=== PATIENT | male | born 1965 | race Caucasian/White ===

== ENCOUNTER 2024-10-17 10:22 | Outpatient (CLI) | payer BC, SELFPAY ==
--- OUTSIDE RECORDS SUMMARY | 2024-09-15 04:03 | XMS_ITS | Continuity of Care Document ---
Author Organization [facility] Address [address] [address] [place] [address] Phone Care Team Providers Care Agent Name Role Phone Deshawn Hair MD, Thomas Unavailable Unavailabl e Advance Directives Directive Yes / No Effective Date File Name No Information Encounters Encounter Description Practice Location Reason(s) For Visit Diagnoses Date Provider Providers Copied on Encounter [facility], [address] [address], [place], [place], [id number], [place] tel:[phone] [facility] No Information Deshawn Guzman. [address] [facility], [facility] [address], [place], [place], [id number], [place]. tel:[phone] Family History Family Member Type Diagnosis Age At Onset No Information Immunizations Vaccine Date Status Comments zoster vaccine recombinant administered N ote: [facility] bi-directional interface ; Source: Other Registry SARS-COV-2 (COVID-19) vaccin e, mRNA, spike protein, LNP, preservative free, 30 mcg/0.3mL dose, tammy-sucrose formulation administered Note: MII C bi- directional interface ; Source: Other Registry tetanus toxoid, reduced diphtheria toxoid, and acellular pertussis vaccine, adsorbed administered Note: [facility] b i-directional interface ; Source: Other Registry measles, mumps and rubella v irus vaccine administered Note: [facility] bi-direct ional interface ; Source: Other Registry Afluria Qd [id number] administered Note: M [facility] bi-directional interface ; Source: Other Registry SARS-COV-2 (COVID-19) vaccin e, mRNA, spike protein, LNP, preservative free, 30 mcg/0.3mL dose administered Note: [facility] bi-direct ional interface ; Source: Other Registry SARS-COV-2 (COVID-19) vaccin e, mRNA, spike protein, LNP, preservative free, 30 mcg/0.3mL dose administered Note: [facility] bi-direct ional interface ; Source: Other Registry SARS-COV-2 (COVID-19) vaccin e, mRNA, spike protein, LNP, preservative free, 30 mcg/0.3mL dose administered Note: [facility] bi-direct ional interface ; Source: Other Registry Payers Payer name Insurance type Covered libertarian ID Authoriza tion(s) No Information Social History Type Description Quantity Date Captured Comments Sex Male Smoking Status No Information Chief Complaint And Reason For Visit No Information Reason For Referral Reason For Referral No Information History Of Present Illness Encounter Date Complaint History Of Prese nt Illness No Information Functional Status Date Functional Assessmen t No Information Instructions Date Instruction Additional Infor mation No Information Assessments Type Assessment Date No Information Patient Care Teams Name Effective Dates (start - stop) Status Members No Information
--- OUTSIDE RECORDS SUMMARY | 2024-09-15 04:03 | XMS_ITS | Continuity of Care Document ---
Author Organization [facility] Address [address] [address] [place] [address] Phone Care Team Providers Care Cloth Shearing Supervisor Name Role Phone Deshawn Hair MD, Thomas Unavailable Unavailabl e Advance Directives Directive Yes / No Effective Date File Name No Information Encounters Encounter Description Practice Location Reason(s) For Visit Diagnoses Date Provider Providers Copied on Encounter [facility], [address] [address], [place], [place], [id number], [place] tel:[phone] [facility] No Information Deshawn Guzman. [address] [facility], [address], [place], [place], [id number], [place]. tel:[phone] Family History Family Member Type Diagnosis Age [...] interface ; Source: Other Registry Afluria Qd [id number] administered Note: M [facility] bi-directional interface ; [...] Registry Payers Payer name Insurance type Covered constitution party ID Authoriza tion(s) No Information Social History [...]
--- OUTSIDE RECORDS SUMMARY | 2024-10-17 11:56 | XMS_ITS | CCD ---
Author Name Interface, [id number] lity Address [address] [place] [address] [address] [place] [address] [facility] Address [facility] [address] [place] [address] Care Team Providers Care Auto Dismantler Name Role Phone Roland Rojas Unavailable Unavailable Allergies and Adverse Reactions Care Plan Reason for Visit Encounters Functional Status Medications Problems Procedures Social History
--- OUTSIDE RECORDS SUMMARY | 2024-10-17 11:56 | XMS_ITS ---
Author Name Interface, [id number] lity Address [address] [place] [address] [address] [address] [facility] On[facility] Address [facility] [address] [place] [address] Care Team Providers Care Environmental Systems Coordinator Name Role Phone Roland Rojas L Unavailable Unavailable Allergies and Adverse Reactions Medication/Group Name Reaction Severity Date No known allergies Plan Date Type Value 01/15/2023 APPOINTMENT LAB 15 MIN 01/15/2023 APPOINTMENT OV 20 MIN 12/30/2021 APPOINTMENT PHLEBOTOMY 30 WA N 01/15/2023 LABORDER CBC w/ auto diff 01/15/2023 LABORDER Ferritin panel 01/14/2024 LABORDER CBC w/ auto diff 01/14/2024 LABORDER Ferritin panel Reason for Visit OV 20 MIN Diagnostic Results Date Type Test Units Lower Limit Upper Limit Result Flag Comments Status Ordered By Specimen Source Lab Address 01/15 CBC w/ auto diff WBC K/uL 3.0 8.9 5.1 FINAL [facility] [facility] [address] [phone] Phone: () - 01/15 CBC w/ auto diff HGB g/dL 12.5 16.6 14.9 FINAL [facility] [place] [address] [id number] 0 Phone: () - 01/15 CBC w/ auto diff PLT K/uL 113.0 364.0 183 FINAL [facility] [place] [address] [id number] 0 Phone: () - 01/15 CBC w/ auto diff Radha # (ANC) K/uL 1.6 6.6 2.6 FINAL [facility] [place] [address] [id number] 0 Phone: () - 01/15 CBC w/ auto diff Radha % % 43.0 74.0 51.5 FINAL [facility] [address] [id number] 0 Phone: () - 01/15 CBC w/ auto diff IG % % 0.0 0.5 0.2 FINAL [facility] [address] [id number] 0 Phone: () - 01/15 CBC w/ auto diff IG # K/uL 0.0 0.03 0.01 FINAL [facility] [address] [id number] 0 Phone: () - 01/15 CBC w/ auto diff LY % % 14.0 41.0 37.5 FINAL [facility] [address] [id number] 0 Phone: () - 01/15 CBC w/ auto diff MO % % 6.0 15.0 9.2 FINAL [facility] [address] [phone] 0 Phone: () - 01/15 CBC w/ auto diff EO % % 0.0 7.0 1.0 FINAL [facility] [address] [id number] 0 Phone: () - 01/15 CBC w/ auto diff BA % % 0.0 2.0 0.6 FINAL [facility] [address] [id number] 0 Phone: () - 01/15 CBC w/ auto diff LY # K/uL 0.4 3.6 1.9 FINAL [facility] [address] [phone] 0 Phone: () - 01/15 CBC w/ auto diff MO # K/uL 0.2 1.3 0.5 FINAL [facility] [address] [id number] 0 Phone: () - 01/15 CBC w/ auto diff EO # K/uL 0.0 0.6 0.1 FINAL [facility] [address] [id number] 0 Phone: () - 01/15 CBC w/ auto diff BA # K/uL 0.0 0.2 0.0 FINAL [facility] [address] [id number] 0 Phone: () - 01/15 CBC w/ auto diff NRBC % #/100W BC 0.0 0.2 0.0 FINAL [facility] [address] [id number] 0 Phone: () - 01/15 CBC w/ auto diff RBC M/uL 4.2 5.6 4.53 FINAL [facility] [address] [id number] 0 Phone: () - 01/15 CBC w/ auto diff HCT % 39.0 49.0 41.9 FINAL [facility] [address] [id number] 0 Phone: () - 01/15 CBC w/ auto diff MCV fL 80.0 104.0 92.5 FINAL [facility] [address] [id number] 0 Phone: () - 01/15 CBC w/ auto diff MCH pg 26.0 35.0 32.9 FINAL [facility] [address] [id number] 0 Phone: () - 01/15 CBC w/ auto diff MCHC g/dL 30.0 35.0 35.6 High FINAL [facility] [address] [id number] 0 Phone: () - 01/15 CBC w/ auto diff MPV fL 9.5 13.4 9.5 FINAL [facility] [address] [id number] 0 Phone: () - 01/15 CBC w/ auto diff RDW % 11.3 15.6 12.30 [facility] [place] , [address] [facility] [address] [facility] [phone] 0 Phone: () - 01/15 Lisandro tin panel Lisandro tin NG/ML 27.0 300.0 229.90 [facility]AL [facility] [place], [address] [facility] [address] [facility] [phone] 0 Phone: () - Medications Date Name Route Dose Frequency Instructions Start Date End Date Status Esomeprazole (Magnesium) Oral Delayed Release Capsule 20.0 mg active Sildenafil Oral 100.0 mg PRN active Atorvastatin Oral 20.0 mg active Valacyclovir Oral orally twice daily as needed active Problems Diagnosis Status Date of Diagnosi s Hemochromatosis Active Iron overload (disorder) Active Vital Signs Date Type Value 12/30/2021 Body Temperature 99.30 12/30/2021 Pain Scale 0.00 12/30/2021 Height 71.00 12/30/2021 Intravascular Systolic 130 12/30/2021 Intravascular Diastolic 87 12/30/2021 Oxygen Saturation 97.00 12/30/2021 Respiratory Rate 16.00 12/30/2021 Heart Beat 62.00 01/15/2023 Height 71.00 01/15/2023 BMI 26.89 01/15/2023 Weight 192.80 01/15/2023 Pain Scale 0.00 01/15/2023 Intravascular Systolic 122 01/15/2023 Intravascular Diastolic 80 01/15/2023 Oxygen Saturation 97.00 01/15/2023 Respiratory Rate 14.00 01/15/2023 BSA 2.08 01/15/2023 Body Temperature 97.10 01/15/2023 Heart Beat 55.00 Notes Section * Med Onc Follow-up Note Patient Name: DEMETRIO NASH? Date Of : 1965? Today's Provider:?Roland Rojas MD Date of Service:?01/15/2023? Attending Physician:?Roland Rojas (Hematology/Oncology) Referring Provider:??Jayson Gaspar MD HEMATOLOGY/ MEDICAL ONCOLOGY FOLLOW UP VISIT Reason for Visit Evaluation and treatment decision regarding hemochromatosis/iron overload Assessment 1. Hemochromatosis Plan 1. He has a history of iron overload with ferritin persistently above 400 for the last few years time. He has normal liver enzymes. 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 He has no mutation on?C282Y gene. This mutation is not typicallyrelated to iron over load but due to persistently elevated ferritin, he had phlebotomy before. His last phlebotomy was in 2021 for ferritin of >600. Will follow up on labs today and consider phlebotomy.?? Advanced Care Planning Not discussed at this visit. Pain Scale on Today's Visit 0 Pain Plan on Today's Visit No pain plan indicated for today's visit Smoking Status Smoking Tobacco : Former smoker; Smokeless Tobacco : none found; Vaping : none found Depression Screening Tool Status Was screened; Outcome positive: No; Screening Date: 01/15/2023; Screening Tool: PRIME MD-PHQ2; Total depression score: 0 History of Present Illness Demetrio Nash is a 55-year-old male with a diagnosis of iron overload. He recently moved from [facility] to [place] because of her new job. More than 4 years ago he was diagnosed with high ferritin. Due to the fact that he was in [place] during the month because of disease, he was declined phlebotomy in [facility]. He established his care here and had a ferritin checked which was??429. Hemochromatosis gene analysis shows that he is heterozygote for H63D gene mutation. He does not carry a mutationon the C282Y gene. His parents at age 69 and 75 from heart disease and Alzheimer's. He has no siblings. Liver enzymes normal. Interval History He has no skin change. ??He has no abdominal pain. ??No??joint pain. Review of Systems Remaining 14 point comprehensive review of systems within normal limits. NCCN Distress Thermometer and Problem List were collected and documented in the patient chart.?? Remarkable symptoms and concerns were discussed with the patient.?? Any additional follow-up is indicated in the plan. Past Medical and Surgical History Lung cancer hyperlipidemia Current Medications Medication List Name Date Atorvastatin Oral 12/10/2020 Valacyclovir Oral 12/19/2021 Nexium 24HR (Esomeprazole (Magnesium) Or al Delayed Release Capsule) 12/10/2020 Viagra (Sildenafil Oral) 12/19/2021 Allergies No known medication allergies Family History No family history of iron overload. Of a 69 and 75 from heart disease and Alzheimer's related complication. Social History He is a non-smoker. He drinks about 12 drinks a week. Vital Signs Blood pressure: 122/80, R arm, Pulse: 55, Temperature: 97.1 F, Respirations: 14, O2 sat: 97%, At Rest, Room Air, Pain Scale: 0, Height: 71 in, Weight: 192.8 lb, BSA: 2.08, BMI: 26.89 kg/m2 Covid Booster #2 Pfizer (12/19/2021), Elsewhere; Covid booster #1 Pfizer (06/16/2021), Elsewhere; Covid-19 vaccine (Pfizer) (12/10/2020), Elsewhere; Covid-19 vaccine ([employer]) (12/10/2020), Elsewhere;Flu vaccine - Adult (08/2021), Elsewhere Performance Status ECOG or Karnofsky ECO Normal activity. Fully active, able to carry on all pre-disease performance without restriction. (Date: 12/19/2021) Karnofsky:?Not recorded Physical Exam Head: ??Normocephalic. ?? Eyes: ??PERRLA, full EOM. ??External exams normal. ?? Nose: ??Patent, without deformity. ?? Throat: ??Moist mucous membranes without lesions, erythema, or exudate. ?? Neck: ??Supple, without masses, lymphadenopathy or tenderness. ?? Respiratory: ??Normal respiratory effort. ??Lungs are clear with good breath sounds. ?? Heart: ??RR without murmurs, rubs, or gallops. ?? Abdomen: ??The abdomen was flat, soft and nontender without guarding rebound or masses. ?? Extremities: ??Full ROM without limitation, deformity or edema.?? Skin: ??Smooth without excessive sweating, with normal hair distribution. ??No suspicious lesions visible. Neuro: ??CN 2-12 intact. ??Strength and sensation intact in all extremities. ??Motor function intact. ?? Genetics/Molecular/Biomarkers ? Additional Labs, Imaging, and Other Studies Lab Results CBC Lab Results 01/15/2023 12/19/2021 06/16/2021 03/11/2021 12/11/1911/30/2020 CBC WBC x 10^3/uL 5.1 5.4 5.7 6.0 RBC x 10^6/uL 4.53 4.62 4.60 4.88 NRBC % /100 wbc 0.0 0.0 0.0 0.0 HGB g/dL 14.9 15.1 14.5 15.4 HCT % 41.9 42.3 42.4 44.3 MCV fL 92.5 91.6 92.2 90.8 MCH pg 32.9 32.7 31.5 31.6 MCHC g/dL 35.6 (H) 35.7 (H) 34.2 34.8 RDW % 12.30 12.70 11.90 12.00 PLT x 10^3/uL 183 172 190 187 MPV fL 9.5 9.5 9.7 9.3 (L) Radha % 51.5 52.7 50.7 49.2 LY % 37.5 37.0 39.8 41.6 (H) MO % 9.2 8.0 7.3 7.6 EO % 1.0 1.3 1.4 1.0 IG % 0.2 0.4 0.4 0.3 Radha # (ANC) x 10^3/uL 2.6 2.8 2.9 2.9 BA % 0.6 0.6 0.4 0.3 MO # x 10^3/uL 0.5 0.4 0.4 0.5 EO # x 10^3/uL 0.1 0.1 0.1 0.1 BA # x 10^3/uL 0.0 0.0 0.0 0.0 IG # x 10^3/uL 0.01 0.02 0.02 0.02 LY # x 10^3/uL 1.9 2.0 2.3 2.5 ? Lab Results 01/15/2023 12/19/2021 06/16/2021 03/11/2021 12/11/1911/30/2020 Anemia Labs Ferritin ng/mL 660.90 (H) 287.10 225.60 Surveys/Consents/Other Discussions Roland Rojas MD CC: FAX Jayson Gaspar MD (Referring) Electronically signed by Roland Rojas MD 01/15/2023 13:28 CDT
--- OUTSIDE RECORDS SUMMARY | 2024-10-17 11:56 | XMS_ITS ---
Author Name Interface, [id number] lity Address [address] [place] [address] [address] [address] [facility] Address [facility] [address] [place] [address] Care Team Providers Care Pharmacy Technician Name Role Phone Roland Rojas L Unavailable Unavailable Allergies and Adverse Reactions Medication/Group Name Reaction Severity Date No known allergies Plan Date Type Value 01/15/2023 APPOINTMENT LAB 15 MIN 01/15/2023 APPOINTMENT OV 20 MIN 01/15/2023 LABORDER CBC w/ auto diff 01/15/2023 LABORDER Ferritin panel 01/14/2024 LABORDER CBC w/ auto diff 01/14/2024 LABORDER Ferritin panel Reason for Visit OV 20 MIN Encounters Date Name 01/15/2023 Hemochromatosis 01/15/2023 Iron overload (disor catherine) Diagnostic Results Date Type Test Units Lower Limit Upper Limit Result Flag Comments Status Ordered By Specimen Source Lab Address 01/15 CBC w/ auto diff WBC K/uL 3.0 8.9 5.1 FINAL [facility] [place] [address] [phone] 0 Phone: () - 01/15 CBC w/ auto diff HGB g/dL 12.5 16.6 14.9 FINAL [facility] [place] [address] [id number] 0 Phone: () - 01/15 CBC w/ auto diff PLT K/uL 113.0 364.0 183 FINAL [facility] [place] [address] [id number] 0 Phone: () - 01/15 CBC w/ auto diff Radha # (ANC) K/uL 1.6 6.6 2.6 FINAL [facility] [place] [facility] [place] , [address] [place] [phone] 0 Phone: () - 01/15 CBC w/ auto diff Radha % % 43.0 74.0 51.5 FINAL [facility] [address] [id number] 0 Phone: () - 01/15 CBC w/ auto diff IG % % 0.0 0.5 0.2 FINAL [facility] [address] [phone] 0 Phone: () - 01/15 CBC w/ auto diff IG # K/uL 0.0 0.03 0.01 FINAL [facility] [address] [phone] 0 Phone: () - 01/15 CBC w/ auto diff LY % % 14.0 41.0 37.5 FINAL [facility] [phone] 0 Phone: () - 01/15 CBC w/ auto diff MO % % 6.0 15.0 9.2 FINAL [facility] [id number] 0 Phone: () - 01/15 CBC w/ auto diff EO % % 0.0 7.0 1.0 FINAL [facility] [id number] 0 Phone: () - 01/15 CBC w/ auto diff BA % % 0.0 2.0 0.6 FINAL [facility] [address] [id number] 0 Phone: () - 01/15 CBC w/ auto diff LY # K/uL 0.4 3.6 1.9 FINAL [facility] [address] [id number] 0 Phone: () - 01/15 CBC w/ auto diff MO # K/uL 0.2 1.3 0.5 FINAL [facility] [address] [id number] 0 Phone: () - 01/15 CBC w/ auto diff EO # K/uL 0.0 0.6 0.1 FINAL [facility] [address] [id number] 0 Phone: () - 01/15 CBC w/ auto diff BA # K/uL 0.0 0.2 0.0 FINAL [facility] [address] [id number] 0 Phone: () - 01/15 CBC w/ auto diff NRBC % #/100W BC 0.0 0.2 0.0 FINAL [facility] [address] [id number] 0 Phone: () - 01/15 CBC w/ auto diff RBC M/uL 4.2 5.6 4.53 FINAL [facility] [address] [id number] 0 Phone: () - 01/15 CBC w/ auto diff HCT % 39.0 49.0 41.9 FINAL [facility] [address] [id number] 0 Phone: () - 01/15 CBC w/ auto diff MCV fL 80.0 104.0 92.5 FINAL [facility] [address] [id number] 0 Phone: () - 01/15 CBC w/ auto diff MCH pg 26.0 35.0 32.9 FINAL [facility] [address] [phone] 0 Phone: () - 01/15 CBC w/ auto diff MCHC g/dL 30.0 35.0 35.6 High FINAL [facility] [address] [id number] 0 Phone: () - 01/15 CBC w/ auto diff MPV fL 9.5 13.4 9.5 FINAL [facility] [address] [id number] 0 Phone: () - 01/15 CBC w/ auto diff RDW % 11.3 15.6 12.30 [facility] [address] [id number] 0 Phone: () - 01/15 Lisandro tin panel Lisandro tin NG/ML 27.0 300.0 229.90 [facility] [place], [address] [phone] 0 Phone: () - Medications Date Name Route Dose Frequency Instructions Start Date End Date Status Esomeprazole (Magnesium) Oral Delayed Release Capsule 20.0 mg active Sildenafil Oral 100.0 mg PRN active Atorvastatin Oral 20.0 mg active Valacyclovir Oral orally twice daily as needed active Problems Diagnosis Status Date of Diagnosi s Hemochromatosis Active Iron overload (disorder) Active Vital Signs Date Type Value 01/15/2023 Body Temperature 97.10 01/15/2023 Heart Beat 55.00 01/15/2023 Respiratory Rate 14.00 01/15/2023 Oxygen Saturation 97.00 01/15/2023 BSA 2.08 01/15/2023 Pain Scale 0.00 01/15/2023 Weight 192.80 01/15/2023 Height 71.00 01/15/2023 BMI 26.89 01/15/2023 Intravascular Systolic 122 01/15/2023 Intravascular Diastolic 80 Notes Section * Med Onc Follow-up Note [...] positive: No; Screening Date: 01/15/2023; Screening Tool: MD-PHQ2; Total depression score: 0 History of Present Illness Demetrio Nash is a 55-year-old male with a diagnosis of iron overload. He recently moved from [place] to [place] because of her new job. More than 4 years ago he was diagnosed with high ferritin. Due to the fact that he was in [place] during the month because of disease, he was declined phlebotomy in [place]. He established his care here and had [...] Covid-19 vaccine (Pfizer) (12/10/2020), Elsewhere; Covid-19 vaccine (Pfizer) (12/10/2020), Elsewhere;Flu vaccine - Adult (08/2021), Elsewhere [...]
--- OUTSIDE RECORDS SUMMARY | 2024-10-17 11:57 | XMS_ITS | Clinical Summary ---
Author Organization [facility] Address [address] [place] [address] Care Team Providers Care Steward/Stewardess Deck Name Role Phone Jatin Escalante MD Primary Care Provider + [phone] Allergies No known active allergies Medications timolol maleate/latanoprost /PF (timoloL-latanopros t,PF,) 0.5-0.005 % dropIndications:Gla ucoma, unspecified glaucoma type, unspecified laterality Once daily to both eyes 5 mL 2 Active esomeprazole (NEXIUM) 40 mg capsuleIndications: Hyperlipidemia, unspecified hyperlipidemia type,Chronic GERD Take 1 Capsule (40 mg) by mouth once daily. 90 Capsule 3 2 Active valACYclovir (VALTREX) 1 gram tabletIndications:C old sore Take 1 Tablet (1 g) by mouth every 12 hours. 180 Tablet 1 4 Active timoloL maleate (TIMOPTIC) 0.25 % ophthalmic solutionIndications :Primary angle closure glaucoma of both eyes, indeterminate stage, unspecified primary angle-closure glaucoma type PLACE 1 DROP INTO BOTH EYES ONCE DAILY. IN THE MORNING 15 mL 6 4 Active latanoprost (XALATAN) 0.005 % ophthalmic solutionIndications :Primary angle closure glaucoma of both eyes, indeterminate stage, unspecified primary angle-closure glaucoma type Place 1 Drop into both eyes at bedtime. 7.5 mL 6 4 Active tadalafiL 20 mg tabletIndications:E rectile dysfunction of organic origin As directed 1 Tablet (20 mg) once daily if needed for Erectile Dysfunction. Take 30 minutes before sexual activity. 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) [place] [facility] H63D gene mutation heterozygote No mutation on C282Y gene Phleb once and ferritin became normal plan every 6 months recheck and phleb if ferritin over 400 Cold sore 11/30/2020 Chronic GERD 11/30/2020 Hyperlipidemia 11/30/2020 Glaucoma 11/30/2020 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 Elevated ferritin 11/30/2020 Encounters Date Type Department Care Team Description 10/16/2024 7:12 AM CDT - 10/16/2024 11:59 PM CDT Hospital Encounter [facility] [place] [address] [place] [address] Lima Tinoco PA [place], Lindsey L, PT Primary osteoarthritis of knees, bilateral 10/16/2024 Travel 10/13/2024 8:20 AM CDT Office Visit [facility] [address] [place] [address] Brittany Lim, OD Follow Up (IOP check ) 10/13/2024 Travel 10/08/2024 Travel 10/02/2024 8:40 AM CDT Ancillary Procedure [address] [address] 10/02/2024 8:30 AM CDT Office Visit [address] [address] Lima Tinoco PA Knee Pain/problem (INBOUND TELEMARKETER, bilateral knee pain, left slightly worse than right ) 10/02/2024 Travel 09/27/2024 Travel 09/15/2024 11:00 AM CDT Office Visit [facility] [address] [place] [address] Brittany Lim OD Eye Exam (CEE) 09/15/2024 10:30 AM CDT Office Visit [facility] [address] [place] [address] Testing (OCT) 09/15/2024 Travel 09/10/2024 Orders Only [address] [address] Jatin Escalante MD <No scans attached> 09/10/2024 Travel 09/02/2024 2:15 PM CDT Ancillary Procedure [address] [address] 09/02/2024 1:00 PM CDT Office Visit [address] [address] Jatin Escalante MD Physical (concern: bilateral knee pain worsening/concern: left upper chest skin mole//PT is not fasting/) 09/02/[address] [address] Jatin Escalante MD 09/02/2024 Travel 08/30/2024 Travel from Last 3 Months Immunizations Immunization Administration Dates Next Due COVID-19 vaccine (Pfizer-Bio NTech 30mcg/0.3mL) 12YO+ RAHUL-SUCROSE CELIA DIALLO 10/10/2021 COVID-19 vaccine (Pfizer-BioNTech 30mcg/0.3mL) P F, MDV 10/01/2020,09/10/2020 Influenza, IIV4 07/18/2021 MMR 07/18/2021 Tdap 07/18/2021 Zoster (Shingrix-RZV, recombinant) 10/10/2021 Family History Medical History Relation Name Comments Coronary artery disease Father Heart attack Father Hypertension Father Cancer-breast Mother Cancer-colon Mother Dementia Mother Relation Name Status Comments Father (Age 69) for a [place] Mother (Age 70's) Dementia and colon cancer Social History Tobacco Use Types Packs/Day Years Used Date Smoking Tobacco: Former Cigarettes Q uit: 11/30/2005 Smokeless Tobacco: Never Alcohol Use Standard Drinks/Week Comments Yes 0 (1 standard drink = 0.6 oz pur e alcohol) weekly PHQ-2 Answer Date Recorded PHQ-2 TOTAL SCORE 0 09/02/2024 Social Connections Answer Date Recorded Do you often feel lonely or isolated from those around you? 0 08/30/2024 Financial Resource Strain Answer Date R ecorded Difficulty of Paying Living Expenses 3 08/30/2024 Difficulty of Paying Living Expenses Not on file 08/30/2024 Food Insecurity Answer Date Recorded Do you worry your food will run out before you are able to buy more? 1 08/30/2024 Transportation Needs Answer Date Record ed Does lack of transportation keep you from medica l appointments? 1 08/30/2024 Does lack of transportation keep you from work, meetings or getting things that you need? 1 08/30/2024 Housing Stability Answer Date Recorded What is your housing situation today? 1 08/30/2024 Utilities Answer Date Recorded Do you have trouble paying f or utilities (for example, heat, electricity, water, phone)? 1 08/30/2024 Sex and Gender Information Value Date Recorded Sex Assigned at Not on file Legal Sex Male 11:18 AM CDT Gender Identity Not on file Sexual Orientation Not on file Travel History Travel Start Travel End [place] 09/17/2024 09/29/2024 Obstetrics History Last Filed Vital Signs Vital Sign Reading Time Taken Comments Blood Pressure 118/70 09/02/2024 1:21 PM CDT Pulse 74 09/02/2024 1:21 PM CDT Temperature 36.4 C (97.6 F) 02/05/2024 11:32 AM CDT Respiratory Rate 12 09/02/2024 1:21 PM CDT Oxygen Saturation 98% 02/05/2024 11:32 AM CDT Inhaled Oxygen Concentration - - Weight 89.6 kg (197 lb 8 oz) 09/02/2024 1:21 PM CDT Height 179.5 cm (5' 10.67) 09/02/2024 1:21 PM C DT Body Mass Index 27.8 09/02/2024 1:21 PM CDT Plan of Treatment Upcoming Encounters Date Type Department Care Team (Late st Contact Info) Description 11/03/2024 3:45 PM CDT Appointment [facility] [address] [place], [place] [phone] Lesvia Adler, PT [address] [place] [address] 11/10/2024 3:45 PM CDT Appointment [facility] [address] [place] [address] [place] [phone] Lesvia Adler, PT [address] [place] [address] 11/17/2024 3:45 PM CDT Appointment [facility] [address] [place], [place] [phone] Lesvia Adler, PT [address] [place] [address] 11/24/2024 3:45 PM CDT Appointment [facility] [address] [place], [place] [phone] Lesvia Adler, PT [address] [place] [address] 12/01/2024 3:45 PM CDT Appointment [facility] [address] [place] [address] Lesvia Adler L, PT [address] [place] [address] 12/08/2024 3:45 PM CDT Appointment [facility] [address] [place] [address] Lesvia Adler L, PT [address] [place] [address] Health Maintenance Due Date Last Done Comments HIV for age 15-65 08/16/1982 Hepatitis C screening for ag e 18-79 08/16/1985 Hepatitis B series for 19+ ( 1 of 3 - 19+ 3-dose series) 08/16/1986 Flex Sig for age 45-75 08/16/2012 Pneumococcal series for age 50+ (1 of 1 - PCV) 08/16/2017 Zoster (shingles) series for age 50+ (2 of 2) 12/05/2021 10/10/2021 COVID-19 vaccine series ( season) 2023 10/10/2021, 04/06/2021, 10/01/2020, Additional history exists Influenza Vaccine (Season Ended) 2024 07/19/19 22 BMI (ht and wt on same day) for age 18+ 09/02/2025 09/02/2024, 02/05/2024, 04/19/2023, Additional history exists Depression screening for age 12+ 09/02/2025 09/02/2024, 09/02/2024, 04/19/2023, Additional history exists Lipids for age 45-75 09/02/2029 09/02/2024, 04/19/2023, 12/23/2021, Additional history exists Tetanus booster 07/19/2031 07/18/2021 Tdap Completed 07/18/2021 Procedures Procedure Name Priority Date/Time Associated Diagnosis Comments XR KNEE WB 2 VIEWS BILATERAL AND 1 VIEW BILATERAL Routine 10/02/2024 8:41 AM CDT Chronic pain of both knees XR KNEE WB 1 VIEW AP BILATERAL Today 09/02/2024 2:18 PM CDT Chronic pain of both knees LIPID PANEL W REFLEX MEASURED LDL Routine 09/02/2024 2:03 PM CDT Hyperlipidemia, unspecified hyperlipidemia type HEMOGLOBIN A1C Routine 09/02/2024 2:03 PM CDT Diabetes mellitus screening COMP METABOLIC PANEL Routine 09/02/2024 2:03 PM CDT Diabetes mellitus screening CBC W PLT NO DIFF Routine 09/02/2024 2:0 3 PM CDT Screening for deficiency anemia PSA TOTAL Routine 09/02/2024 2:03 PM CDT Prostate cancer screening PATH TISSUE EXAM Routine 09/02/2024 1:4 0 PM CDT Atypical mole from Last 3 Months Results * XR KNEE WB 2 VIEWS BILATERAL AND 1 VIEW BILATERAL (10/02/2024 8:41 AM CDT) Anatomical Region Laterality Modality KNEES Digital Radiogra phy Impressions 10/02/2024 9:53 AM CDT Tela-ln-hlktjnqa osteoarthritis of the bilateral knee All services were personally performed by Lima Tinoco PA-C. Documentation performed by Iqra Cisneros CMA based on my observation of services performed and provider statements to me. Lima Tinoco PA-C 10/02/2024 Narrative 10/02/2024 9:53 AM CDT This radiology exam was performed at [place] and interpreted by Lima Tinoco PA-C HISTORY: A 59 y.o. year - old male with bilateral knee pain TECHNIQUE: Five views of the bilateral knee were obtained today including: weightbearing bilateral AP, weightbearing bilateral PA Jurado, bilateral sunrise, and bilateral lateral views. FINDINGS: RIGHT KNEE: Lsan-zi-tskgvtlm degenerative changes of the right knee. Mild patellofemoral compartment joint space narrowing, right knee. Mild medial compartment joint space narrowing, right knee. Sizz-zr-hrthrjbq lateral compartment joint space narrowing, right knee. Subchondral sclerosis present, right knee. Osteophytes present, patellofemoral compartment of the right knee. Neutral alignment of the right knee. No evidence of acute fracture or dislocation. LEFT KNEE: Lklr-ix-dfmwhwaf degenerative changes of the left knee. Mild patellofemoral compartment joint space narrowing, left knee. Mild medial compartment joint space narrowing, left knee. Fjgf-zy-bniawijf lateral compartment joint space narrowing, left knee. Subchondral sclerosis present, left knee. Osteophytes present, patellofemoral compartment of the left knee. Neutral alignment of the left knee. No evidence of acute fracture or dislocation. us Lima [facility] Final Re sult * XR KNEE WB 1 VIEW AP BILATERAL (09/02/2024 2:18 PM CDT) Anatomical Region Laterality Modality KNEES, KNEE L, KNEE R Digital Ra diography 09/02/2024 2:18 PM CDT Impressions 09/02/2024 3:23 PM CDT RIGHT KNEE: Normal joint spaces and alignment. No fracture or degenerative changes. LEFT KNEE: Normal joint spaces and alignment. No fracture or degenerative changes. Narrative 09/02/2024 3:23 PM CDT For Patients: As a result of the Cures Act, medical imaging exams and procedure reports are released immediately into your electronic medical record. You may view this report before your referring provider. If you have questions, please contact your health care provider. EXAM: XR KNEE WB 1 VIEW AP BILATERAL LOCATION: [facility] DATE: 09/02/2024 INDICATION: Chronic Pain Of Both Knees Chronic Pain Of Both Knees Chronic Pain Of Both Knees COMPARISON: None. Procedure Note Anibal Pelayo MD - 09/02/2024 For Patients: As a result of the Cures Act, medical imagingexams and procedure reports are released immediately into your electronicmedical record. You may view this report before your referring provider.If you have questions, please contact your health care provider. EXAM: XR KNEE WB 1 VIEW AP BILATERAL LOCATION: [facility] DATE: 09/02/2024 INDICATION: Chronic Pain Of Both Knees Chronic Pain Of Both Knees ChronicPain Of Both Knees COMPARISON: None. IMPRESSION: RIGHT KNEE: Normal joint spaces and alignment. No fracture or degenerativechanges. LEFT KNEE: Normal joint spaces and alignment. No fracture or degenerativechanges. Jatin Escalante MD GENERAL IMAGING Final Result * HEMOGLOBIN A1C SCREENING [[id number]] (09/02/2024 2:03 PM CDT) Pathologist [facility] HEMOGLOBIN A1C 5.6 <5.7 % [facility] Comment: For the purpose of screening for the presence of diabetes: <5.7% Consistent with the absence of diabetes 5.7-6.4% Consistent with increased risk for diabetes (prediabetes) > or =6.5% Consistent with diabetes This assay result is consistent with a decreased risk of diabetes. Currently, no consensus exists regarding use of hemoglobin A1c for diagnosis of diabetes in children. According to [place] Diabetes Association (ADA) guidelines, hemoglobin A1c <7.0% represents optimal control in non- diabetic patients. Different metrics may apply to specific patient populations. Standards of Medical Care in Diabetes(ADA). Blood BLOOD SPECIMEN / Unknown 09/02/2024 2:03 PM CDT 09/02/2024 2:03 PM CDT Jatin Escalante MD CHEMISTRY Final Result [facility] [address] [place] [address], [facility] [address] [place] [address] * (ABNORMAL) LIPID PANEL W REFLEX MEASURED LDL [[id number]] (09/02/2024 2:03 PM CDT) CHOLESTEROL, TOTAL 269(H) <200 mg/dL [facility] HDL CHOLESTEROL 55 > OR = 40 mg/dL [facility] TRIGLYCERIDES 338(H) <150 mg/dL [facility] Comment: If a non-fasting specimen was collected, consider repeat triglyceride testing on a fasting specimen if clinically indicated. Maddy et al. J. of Clin. Lipidol. 2015;9:129-169. LDL-CHOLESTEROL 162(H) mg/dL (calc) [facility] Comment: Reference range: <100 Desirable range <100 mg/dL for primary prevention; <70 mg/dL for patients with CHD or diabetic patients with > or = 2 CHD risk factors. LDL-C is now calculated using the Geovanni calculation, which is a validated novel method providing better accuracy than the Friedewald equation in the estimation of LDL-C. Henok MARK et al. ROMAN. 2013;310(19): 9629-8967 (http://education.Angle/faq/DKZ137) CHOL/HDLC RATIO 4.9 <5.0 (calc) [facility] NON HDL CHOLESTEROL 214(H) <130 mg/dL (calc) [facility] Comment: For patients with diabetes plus 1 major ASCVD risk factor, treating to a non-HDL-C goal of <100 mg/dL (LDL-C of <70 mg/dL) is considered a therapeutic option. Blood BLOOD SPECIMEN / Unknown 09/02/2024 2:03 PM CDT 09/02/2024 2:03 PM CDT Jatin Escalante MD CHEMISTRY Final Result [facility] [address] [place] [address], [facility] [address] [place] [address] * CBC W PLT NO DIFF [[id number]] (09/02/2024 2:03 PM CDT) WHITE BLOOD CELL COUNT 4.4 3.8 - 10.8 Thousand/u L [facility] RED BLOOD CELL COUNT 4.57 4.20 - 5.80 Million/uL [facility] HEMOGLOBIN 14.6 13.2 - 17.1 g/dL [facility] HEMATOCRIT 42.6 38.5 - 50.0 % [facility] MCV 93.2 80.0 - 100.[address] [facility] MCH 31.9 27.0 - 33.[address] [facility] MCHC 34.3 32.0 - 36.0 g/dL [facility] Comment: For adults, a slight decrease in the calculated MCHC value (in the range of 30 to 32 g/dL) is most likely not clinically significant; however, it should be interpreted with caution in correlation with other red cell parameters and the patient's clinical condition. RDW 12.8 11.0 - 15.0 % [facility] PLATELET COUNT 193 140 - 400 Thousand/u L [facility] MPV 9.6 7.5 - 12.[address] [facility] Blood BLOOD SPECIMEN / Unknown 09/02/2024 2:03 PM CDT 09/02/2024 2:03 PM CDT Jatin Escalante MD HEMATOLOGY Final Result [address] [address], [address] [address] * PSA TOTAL [[id number]] (09/02/2024 2:03 PM CDT) PSA, TOTAL 1.71 < OR = 4.00 ng/mL [facility] Comment: The total PSA value from this assay system is standardized against the WHO standard. The test result will be approximately 20% lower when compared to the equimolar-standardized total PSA (Jemma Ardmore). Comparison of serial PSA results should be interpreted with this fact in mind. This test was performed using the Siemens chemiluminescent method. Values obtained from different assay methods cannot be used interchangeably. PSA levels, regardless of value, should not be interpreted as absolute evidence of the presence or absence of disease. Blood BLOOD SPECIMEN / Unknown 09/02/2024 2:03 PM CDT 09/02/2024 2:03 PM CDT Jatin Escalante MD CHEMISTRY Final Result [facility] [address] [place] [address], [facility] [address] [place] [address] * COMP METABOLIC PANEL [95000.0] (09/02/2024 2:03 PM CDT) GLUCOSE 98 65 - 99 mg/dL [facility] Comment: Fasting reference interval UREA NITROGEN (BUN) 23 7 - 25 mg/dL [facility] CREATININE 1.09 0.70 - 1.30 mg/dL [facility] EGFR 79 > OR = 60 mL/min/1. 73m2 [facility] BUN/CREATININE RATIO SEE NOTE: 6 - 22 (calc) [facility] Comment: Not Reported: BUN and Creatinine are within reference range. SODIUM 140 135 - 146 mmol/L [facility] POTASSIUM 4.3 3.5 - 5.3 mmol/L [facility] CHLORIDE 104 98 - 110 mmol/L [facility] CARBON DIOXIDE 28 20 - 32 mmol/L [facility] CALCIUM 9.5 8.6 - 10.3 mg/dL [facility] PROTEIN, TOTAL 6.8 6.1 - 8.1 g/dL [facility] ALBUMIN 4.5 3.6 - 5.1 g/dL [facility] GLOBULIN 2.3 1.9 - 3.7 g/dL (calc) [facility] ALBUMIN/GLOBULIN RATIO 2.0 1.0 - 2.5 (calc) [facility] BILIRUBIN, TOTAL 0.5 0.2 - 1.2 mg/dL [facility] ALKALINE PHOSPHATASE 66 35 - 144 U/L [facility] AST 30 10 - 35 U/L [facility] ALT 38 9 - 46 U/L [facility] Blood BLOOD SPECIMEN / Unknown 09/02/2024 2:03 PM CDT 09/02/2024 2:03 PM CDT Jatin Escalante MD CHEMISTRY Final Result [facility] [address] [place] [address], [facility] [address] [place] [address] * PATH TISSUE EXAM (09/02/2024 1:40 PM CDT) Case Report Pathology Report Case: [id number] Authorizing Provider: Jatin Escalante MD Collected: 09/02/2024 1340 Ordering Location: [facility] Received: 09/02/2024 1349 Clinic Pathologist: Maximiliano Lugo MD Specimen: Left Shoulder 09/08/2024 4:55 PM CDT [facility] Final Diagnosis SKIN, LEFT SHOULDER, BIOPSY: 1. Pigmented seborrheic keratosis 2. Negative for malignancy 09/08/2024 4:55 PM CDT [facility] at 1655 CDT Clinical Information Left shoulder skin lesion. 09/08/2024 4:55 PM CDT [facility] Gross Description A) Received in formalin, labeled with the patient's name and left shoulder, is a 0.8 x 0.5 x 0.2 cm dome-shaped brown skin lesion, inked blue and trisected. TRB 09/03/2024 09/08/2024 4:55 PM CDT [facility] Microscopic Description The final diagnosis is based on microscopic examination of appropriate sections of all specimens. The epidermis is acanthotic and hyperkeratotic. Epidermal pigmentation is present. The presence of blue ink is confirmed on tissue sections. 09/08/2024 4:55 PM CDT [facility] Additional Information Interpreted at [facility], Central Laboratory - [address] [facility] [address], [place] [address] 09/08/2024 4:55 PM CDT [facility] Other (Left Shoulder) Non-Blood / Unknown 09/02/2024 1:40 PM CDT 09/02/2024 1:49 PM CDT us Jatin Escalante MD PATHOLOGY/CYTOLOGY Final Res ult [facility] [address] [place] [address], [place] from Last 3 Months Insurance [facility] Care Teams Steward/Stewardess Deck Relationship Specialty Start Date End Date Jatin Escalante MD [address] [place] [place] [address] PCP - General Family Practice 04/19/23
--- OUTSIDE RECORDS SUMMARY | 2024-10-18 00:48 | XMS_ITS ---
Author Name Interface, [id number] lity Address [address] [place] [address] [address] [address] [facility] Oncology Address [facility]0 [facility] [address] [address] Care Team Providers Care Environmental Field Services Technician Name Role Phone Roland Rojas L Unavailable Unavailable Allergies and Adverse Reactions Medication/Group Name Reaction Severity Date No known allergies Plan Date Type Value 01/15/2023 APPOINTMENT LAB 15 MIN 01/15/2023 APPOINTMENT OV 20 MIN 12/30/2021 APPOINTMENT PHLEBOTOMY 30 MO N 01/15/2023 LABORDER CBC w/ auto diff 01/15/2023 LABORDER Ferritin panel 01/14/2024 LABORDER CBC w/ auto diff 01/14/2024 LABORDER Ferritin panel Reason for Visit OV 20 MIN Diagnostic Results Date Type Test Units Lower Limit Upper Limit Result Flag Comments Status Ordered By Specimen Source Lab Address 01/15 CBC w/ auto diff WBC K/uL 3.0 8.9 5.1 FINAL [place] [address] [phone] Phone: () - 01/15 CBC w/ auto diff HGB g/dL 12.5 16.6 14.9 FINAL [place] [address] [phone] 0 Phone: () - 01/15 CBC w/ auto diff PLT K/uL 113.0 364.0 183 FINAL [place] [address] [phone] 0 Phone: () - 01/15 CBC w/ auto diff Radha # (ANC) K/uL 1.6 6.6 2.6 FINAL [place] [address] [phone] 0 Phone: () - 01/15 CBC w/ auto diff Radha % % 43.0 74.0 51.5 FINAL [place] [place] [facility] [address] [phone] 0 Phone: () - 01/15 CBC w/ auto diff IG % % 0.0 0.5 0.2 FINAL [place] [address] [phone] 0 Phone: () - 01/15 CBC w/ auto diff IG # K/uL 0.0 0.03 0.01 FINAL [place] [address] [phone] 0 Phone: () - 01/15 CBC w/ auto diff LY % % 14.0 41.0 37.5 FINAL [place] [address] [phone] 0 Phone: () - 01/15 CBC w/ auto diff MO % % 6.0 15.0 9.2 FINAL [place] [place] [address] [phone] 0 Phone: () - 01/15 CBC w/ auto diff EO % % 0.0 7.0 1.0 FINAL [place] [address] [phone] 0 Phone: () - 01/15 CBC w/ auto diff BA % % 0.0 2.0 0.6 FINAL [place] [address] [phone] 0 Phone: () - 01/15 CBC w/ auto diff LY # K/uL 0.4 3.6 1.9 FINAL [place] [address] [phone] 0 Phone: () - 01/15 CBC w/ auto diff MO # K/uL 0.2 1.3 0.5 FINAL [place] [place] D[place] a [address] [phone] 0 Phone: () - 01/15 CBC w/ auto diff EO # K/uL 0.0 0.6 0.1 FINAL [place] [address] [phone] 0 Phone: () - 01/15 CBC w/ auto diff BA # K/uL 0.0 0.2 0.0 FINAL [place] [address] [phone] 0 Phone: () - 01/15 CBC w/ auto diff NRBC % #/100W BC 0.0 0.2 0.0 FINAL [place] [address] [phone] 0 Phone: () - 01/15 CBC w/ auto diff RBC M/uL 4.2 5.6 4.53 FINAL [place] [address] [phone] 0 Phone: () - 01/15 CBC w/ auto diff HCT % 39.0 49.0 41.9 FINAL [place] Varma gypsy [address] [phone] 0 Phone: () - 01/15 CBC w/ auto diff MCV fL 80.0 104.0 92.5 FINAL [place] [address] [id number] 0 Phone: () - 01/15 CBC w/ auto diff MCH pg 26.0 35.0 32.9 FINAL [place] [address] [phone] 0 Phone: () - 01/15 CBC w/ auto diff MCHC g/dL 30.0 35.0 35.6 High FINAL [place] [address] [phone] 0 Phone: () - 01/15 CBC w/ auto diff MPV fL 9.5 13.4 9.5 FINAL [place] [place] Varma gypsy [address] [phone] 0 Phone: () - 01/15 CBC w/ auto diff RDW % 11.3 15.6 12.30 [facility]AL [facility] - [place] , [address] [facility] [address] [facility] [phone] 0 Phone: () - 01/15 Lisandro tin panel Lisandro tin NG/ML 27.0 300.0 229.90 FINAL [facility] - [place], [address] [facility] [address] [facility] [phone] 0 Phone: () - Medications Date Name [...] of iron overload. He recently moved from [facility] to [place] because of her new job. More than 4 years ago he was diagnosed with high ferritin. Due to the fact that he was in [place] during the month because of disease, he was declined phlebotomy in [facility]. He established his care here and [...] Covid-19 vaccine (Pfizer) (12/10/2020), Elsewhere; Covid-19 vaccine (24 Quan) (12/10/2020), Elsewhere;Flu vaccine - Adult (08/2021), Elsewhere [...]
--- OUTSIDE RECORDS SUMMARY | 2024-10-18 00:48 | XMS_ITS ---
Author Name Interface, [id number] lity Address [address] [place] [address] [address] [address] [facility] Oncology Address [facility]0 [facility] [address] [place] [address] Care Team Providers Care Roads Supervisor Name Role Phone Roland Rojas L Unavailable [...] 8.9 5.1 FINAL [place] [address] [phone] 0 Phone: () - 01/15 CBC w/ auto diff HGB g/dL 12.5 16.6 14.9 FINAL [place] [address] [phone] 0 Phone: () - 01/15 CBC w/ auto diff PLT K/uL 113.0 364.0 183 FINAL [place] [address] [phone] 0 Phone: () - 01/15 CBC w/ auto diff Radha # (ANC) K/uL 1.6 6.6 2.6 FINAL [facility] [place] Oncology [place] , [address] [place] [phone] 0 Phone: () - 01/15 CBC w/ auto diff Radha % % 43.0 74.0 51.5 FINAL [place] [facility] [address] [phone] 0 Phone: () - 01/15 CBC w/ auto diff IG % % 0.0 0.5 0.2 FINAL [place] [address] [phone] 0 Phone: () - 01/15 CBC w/ auto diff IG # K/uL 0.0 0.03 0.01 FINAL [place] Varma gypsy [address] [phone] 0 Phone: () - 01/15 CBC w/ auto diff LY % % 14.0 41.0 37.5 FINAL [place] Varma[address] [phone] 0 Phone: () - 01/15 CBC w/ auto diff MO % % 6.0 15.0 9.2 FINAL [place] Varma[address] [phone] 0 Phone: () - 01/15 CBC w/ auto diff EO % % 0.0 7.0 1.0 FINAL [place] Varma[address] [phone] 0 Phone: () - 01/15 CBC w/ auto diff BA % % 0.0 2.0 0.6 FINAL [place] [address] [phone] 0 Phone: () - 01/15 CBC w/ auto diff LY # K/uL 0.4 3.6 1.9 FINAL [place] [address] [id number] 0 Phone: () - 01/15 CBC w/ auto diff MO # K/uL 0.2 1.3 0.5 FINAL [place] [address] [phone] 0 Phone: () - 01/15 CBC w/ auto diff EO # K/uL 0.0 0.6 0.1 FINAL [place] [address] [id number] 0 Phone: () - 01/15 CBC w/ auto diff BA # K/uL 0.0 0.2 0.0 FINAL [place] [address] [id number] 0 Phone: () - 01/15 CBC w/ auto diff NRBC % #/100W BC 0.0 0.2 0.0 FINAL Roland Varma gypsy [address] [phone] 0 Phone: () - 01/15 CBC w/ auto diff RBC M/uL 4.2 5.6 4.53 FINAL [place] Varma gypsy [address] [phone] 0 Phone: () - 01/15 CBC w/ auto diff HCT % 39.0 49.0 41.9 FINAL [place] Varma gypsy [address] [phone] 0 Phone: () - 01/15 CBC w/ auto diff MCV fL 80.0 104.0 92.5 FINAL [place] Varma gypsy [address] [phone] 0 Phone: () - 01/15 CBC w/ auto diff MCH pg 26.0 35.0 32.9 FINAL [place] [place] [facility] [address] [phone] 0 Phone: () - 01/15 CBC w/ auto diff MCHC g/dL 30.0 35.0 35.6 High FINAL [place] [place] [address] [phone] 0 Phone: () - 01/15 CBC w/ auto diff MPV fL 9.5 13.4 9.5 FINAL [place] [address] [phone] 0 Phone: () - 01/15 CBC w/ auto diff RDW % 11.3 15.6 12.30 [facility] [address] [phone] 0 Phone: () - 01/15 Lisandro tin panel Lisandro tin NG/ML 27.0 300.0 229.90 [facility]AL [facility] [place], [address] [phone] 0 Phone: () - Medications Date Name [...] overload. He recently moved from [place] to [place] because of her new job. [...]
--- OUTSIDE RECORDS SUMMARY | 2024-10-18 00:48 | XMS_ITS | Clinical Summary ---
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) [place] [facility] H63D gene mutation heterozygote No mutation on C282Y gene Phleb once and ferritin became normal plan every 6 months recheck and phleb if ferritin over 400 Cold sore 11/30/2020 Chronic GERD 11/30/2020 Hyperlipidemia 11/30/2020 Glaucoma 11/30/2020 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 Elevated ferritin 11/30/2020 Encounters Date Type Department Care Team Description 10/17/2024 10:30 AM CDT Procedure Only [facility] at [facility] [address] [place] [address] Henok Pizarro MD Arrived 10/16/2024 7:12 AM CDT - 10/16/2024 11:59 PM CDT Hospital Encounter [facility] [place] [address] [place] [address] Lmia Tinoco PA [place], Lindsey L, PT Primary osteoarthritis of knees, bilateral 10/16/2024 Travel 10/13/2024 8:20 AM CDT Office Visit [facility] [address] [place] [address] Brittany Lim, OD Follow Up (IOP check ) 10/13/2024 Travel 10/08/2024 Travel 10/02/2024 8:40 AM CDT Ancillary Procedure [address] [address] 10/02/2024 8:30 AM CDT Office Visit [address] [address] Lima Tinoco PA Knee Pain/problem (AIRPLANE MECHANIC APPRENTICE, bilateral knee pain, left slightly worse than right ) 10/02/2024 Travel 09/27/2024 Travel 09/15/2024 11:00 AM CDT Office Visit [facility] [address] [place] [address] Brittany Lim OD Eye Exam (CEE) 09/15/2024 10:30 AM CDT Office Visit [facility] [address] [place] [address] Testing (OCT) 09/15/2024 Travel 09/10/2024 Orders Only [address] [address] Jatin Escalante MD <No scans attached> 09/10/2024 Travel 09/02/2024 2:15 PM CDT Ancillary Procedure [address] [address] 09/02/2024 1:00 PM CDT Office Visit [address] [address] Jatin Escalante MD Physical (concern: bilateral knee pain worsening/concern: left upper chest skin mole//PT is not fasting/) 09/02/[address] [address] Jatin Escalante MD 09/02/2024 Travel 08/30/2024 Travel from Last 3 Months Immunizations Immunization Administration Dates Next Due COVID-19 vaccine (Pfizer-Bio NTech 30mcg/0.3mL) 12YO+ RAHUL-SUCROSE PF, MDV 10/10/2021 COVID-19 vaccine (Pfizer-BioNTech 30mcg/0.3mL) P F, MDV 10/01/2020,09/10/2020 Influenza, IIV4 07/18/2021 MMR 07/18/2021 Tdap 07/18/2021 Zoster (Shingrix-RZV, recombinant) 10/10/2021 Family History Medical History Relation Name Comments Coronary artery disease Father Heart attack Father Hypertension Father Cancer-breast Mother Cancer-colon Mother Dementia Mother Relation Name Status Comments Father (Age 69) for a VA Mother (Age 70's) Dementia and colon cancer [...] Info) Description 11/03/2024 3:[address] [facility] [address] [place], [place] [phone] Lesvia Adler, PT [address] [place] [address] 11/10/2024 3:45 PM CDT Appointment Jenny Coel[facility] [address] [place], [place] [phone] Lesvia Adler, PT [address] [place] [address] 11/17/2024 3:[address] [address] [place], [place] [phone] Lesvia Adler, PT [address] [place] [address] 11/24/2024 3:[address] [facility] [address] [place], [place] [phone] Lesvia Adler, PT [address] [place], [place] [phone] 12/01/2024 3:45 PM CDT Appointment [facility] [address] [place] [address] Lesvia Adler, PT [address] [place] [address] 12/08/2024 3:45 PM CDT Appointment [facility] [address] [place] [address] Lesvia Adler, PT [address] [facility] [place] [address] Health Maintenance Due Date Last Done Comments HIV for age 15-65 08/16/1982 Hepatitis C screening for ag e 18-79 08/16/1985 Hepatitis B series for 19+ ( 1 of 3 - 19+ 3-dose series) 08/16/1986 Pneumococcal series for age 50+ (1 of [...] 09/02/2025 09/02/2024, 09/02/2024, 04/19/2023, Additional history exists Flex Sig for age 45-75 10/17/2025 10/17/2024 Lipids for age 45-75 09/02/2029 09/02/2024, 04/19/2023, [...] cancer screening PATH TISSUE EXAM Routine 09/02/2024 1:40 PM CDT Atypical mole from Last 3 Months Results * XR KNEE WB 2 VIEWS BILATERAL AND 1 VIEW BILATERAL (10/02/2024 8:41 AM CDT) Anatomical Region Laterality Modality KNEES Digital Radiogra phy Impressions 10/02/2024 9:53 AM CDT Bafg-mm-vcjkbocw osteoarthritis of the bilateral knee All services were personally performed by Lima Tinoco PA-C. Documentation performed by Iqra Cisneros CMA based on my observation of services performed and provider statements to me. Lima Tinoco PA-C 10/02/2024 Narrative 10/02/2024 9:53 AM CDT This radiology exam was performed at [facility] and interpreted by Lima Tinoco PA-C HISTORY: A 59 y.o. year - old male with bilateral knee pain TECHNIQUE: Five views of the bilateral knee were obtained today including: weightbearing bilateral AP, weightbearing bilateral PA Jurado, bilateral sunrise, and bilateral lateral views. FINDINGS: RIGHT KNEE: Aapy-mq-svmwtfro degenerative changes of the right knee. Mild patellofemoral compartment joint space narrowing, right knee. Mild medial compartment joint space narrowing, right knee. Deml-it-gvsfbstp lateral compartment joint space narrowing, right knee. Subchondral sclerosis present, right knee. Osteophytes present, patellofemoral compartment of the right knee. Neutral alignment of the right knee. No evidence of acute fracture or dislocation. LEFT KNEE: Xrmf-rw-nrsoaimg degenerative changes of the left knee. Mild patellofemoral compartment joint space narrowing, left knee. Mild medial compartment joint space narrowing, left knee. Vasi-rr-qwtindcq lateral compartment joint space narrowing, left knee. [...] KNEE WB 1 VIEW AP BILATERAL LOCATION: [facility] DATE: 09/02/2024 INDICATION: Chronic Pain Of Both [...] KNEE WB 1 VIEW AP BILATERAL LOCATION: [facility] DATE: 09/02/2024 INDICATION: Chronic Pain Of Both Knees Chronic Pain Of Both Knees ChronicPain Of Both Knees COMPARISON: None. IMPRESSION: RIGHT KNEE: Normal joint spaces and alignment. No fracture or degenerativechanges. LEFT KNEE: Normal joint spaces and alignment. No fracture or degenerativechanges. Jatin Escalante MD GENERAL IMAGING Final Result * HEMOGLOBIN A1C SCREENING [[id number]] (09/02/2024 2:03 PM CDT) HEMOGLOBIN A1C 5.6 <5.7 % [facility] Comment: For the purpose of screening for the presence of diabetes: <5.7% Consistent with the absence of diabetes 5.7-6.4% Consistent with increased risk for diabetes (prediabetes) > or =6.5% Consistent with diabetes This assay result is consistent with a decreased risk of diabetes. Currently, no consensus exists regarding use of hemoglobin A1c for diagnosis of diabetes in children. According to [place] Diabetes Association (ADA) guidelines, hemoglobin A1c <7.0% represents optimal control in non- diabetic patients. Different metrics may apply to specific patient populations. Standards of Medical Care in Diabetes(ADA). Blood BLOOD SPECIMEN / Unknown 09/02/2024 2:03 PM CDT 09/02/2024 2:03 PM CDT Jatin Escalante MD CHEMISTRY Final Result [facility] [address] [place] [address], [facility] [address] [place] [address] * (ABNORMAL) LIPID PANEL W REFLEX MEASURED LDL [[id number]] (09/02/2024 2:03 PM CDT) CHOLESTEROL, TOTAL 269(H) <200 mg/dL [facility] HDL CHOLESTEROL 55 > OR = 40 mg/dL [facility] TRIGLYCERIDES 338(H) <150 mg/dL [facility] Comment: If a non-fasting specimen was collected, consider repeat triglyceride testing on a fasting specimen if clinically indicated. Maddy et al. J. of Clin. Lipidol. 2015;9:129-169. LDL-CHOLESTEROL 162(H) mg/dL (calc) [facility] Comment: Reference range: <100 Desirable range <100 mg/dL for primary prevention; <70 mg/dL for patients with CHD or diabetic patients with > or = 2 CHD risk factors. LDL-C is now calculated using the Geovanni calculation, which is a validated novel method providing better accuracy than the Friedewald equation in the estimation of LDL-C. Henok MARK et al. ROMAN. 2013;310(19): 7042-9412 (http://education.DPSI/faq/GEE403) CHOL/HDLC RATIO 4.9 <5.0 (calc) [facility] NON HDL CHOLESTEROL 214(H) <130 mg/dL (calc) [facility] Comment: For patients with diabetes plus 1 major ASCVD risk factor, treating to a non-HDL-C goal of <100 mg/dL (LDL-C of <70 mg/dL) is considered a therapeutic option. Blood BLOOD SPECIMEN / Unknown 09/02/2024 2:03 PM CDT 09/02/2024 2:03 PM CDT Jatin Escalante MD CHEMISTRY Final Result [facility] [address] [place] [address], [facility] [address] [place] [address] * CBC W PLT NO DIFF [[id number]] (09/02/2024 2:03 PM CDT) Pathologist [facility] WHITE BLOOD CELL COUNT 4.4 3.8 - 10.8 Thousand/u L [facility] RED BLOOD CELL COUNT 4.57 4.20 - 5.80 Million/uL [facility] HEMOGLOBIN 14.6 13.2 - 17.1 g/dL [facility] HEMATOCRIT 42.6 38.5 - 50.0 % [facility] MCV 93.2 80.0 - 100.0 fL [facility] MCH 31.9 27.0 - 33.0 pg [facility] MCHC 34.3 32.0 - 36.0 g/dL [facility] Comment: For adults, a slight decrease in the calculated MCHC value (in the range of 30 to 32 g/dL) is most likely not clinically significant; however, it should be interpreted with caution in correlation with other red cell parameters and the patient's clinical condition. RDW 12.8 11.0 - 15.0 % [facility] PLATELET COUNT 193 140 - 400 Thousand/u L [facility] MPV 9.6 7.5 - 12.5 fL [facility] Blood BLOOD SPECIMEN / Unknown 09/02/2024 2:03 PM CDT 09/02/2024 2:03 PM CDT Jatin Escalante MD HEMATOLOGY Final Result [address] [address], [address] [address] * PSA TOTAL [[id number]] (09/02/2024 2:03 PM CDT) PSA, TOTAL 1.71 < OR = 4.00 ng/mL [facility] Comment: The total PSA value from this assay system is standardized against the WHO standard. The test result will be approximately 20% lower when compared to the equimolar-standardized total PSA (Jemma Donn). Comparison of serial PSA results should be [...] CDT Jatin Escalante MD CHEMISTRY Final Result [facility] [address] [place] [address], [facility] [address] [place] [address] * COMP METABOLIC PANEL [[id number]] (09/02/2024 2:03 PM CDT) Pathologist [facility] GLUCOSE 98 65 - 99 mg/dL [facility] Comment: Fasting reference interval UREA [...] Escalante MD CHEMISTRY Final Result [facility] [address] [place] [address], [facility] [address] [place] [address] * PATH TISSUE EXAM (09/02/2024 1:40 PM CDT) Case Report Pathology Report Case: [id number] Authorizing Provider: Jatin Escalante MD Collected: 09/02/2024 1340 Ordering Location: [facility] Received: 09/02/2024 1349 Clinic Pathologist: Maximiliano Lugo MD Specimen: Left Shoulder 09/08/2024 4:55 PM CDT [facility] EN[facility]AL [facility] Final Diagnosis SKIN, LEFT SHOULDER, BIOPSY: 1. Pigmented seborrheic keratosis 2. Negative for malignancy 09/08/2024 4:55 PM CDT [facility] ENTRAL LABORATORY at 1655 CDT Clinical Information Left shoulder skin lesion. 09/08/2024 4:55 PM CDT [facility] ENTRAL LABORATORY Gross Description A) Received in formalin, labeled with the patient's name and left shoulder, is a 0.8 x 0.5 x 0.2 cm dome-shaped brown skin lesion, inked blue and trisected. TRB 09/03/2024 09/08/2024 4:55 PM CDT [facility] ENTRAL LABORATORY Microscopic Description The final diagnosis is based on microscopic examination of appropriate sections of all specimens. The epidermis is acanthotic and hyperkeratotic. Epidermal pigmentation is present. The presence of blue ink is confirmed on tissue sections. 09/08/2024 4:55 PM CDT [facility]-C ENTRAL LABORATORY Additional Information Interpreted at [facility], Central Laboratory - [address] [place] [address], [place] [address] 09/08/2024 4:55 PM CDT [facility]- ENTRAL LABORATORY Other (Left Shoulder) Non-Blood / Unknown 09/02/2024 1:40 PM CDT 09/02/2024 1:49 PM CDT us Jatin Escalante MD PATHOLOGY/CYTOLOGY Final Res ult [facility]CENTRAL LABORATORY [address] [place] [address], [place] from Last 3 Months Insurance [employer] [place] [id number] [facility] NON-CA-ITS Care Teams Clam Shovel Operator Relationship Specialty Start Date End Date Jatin Escalante MD [address] [place] [address] PCP - General Family Practice 04/19/23
--- OUTSIDE RECORDS SUMMARY | 2024-10-18 00:48 | XMS_ITS | CCD ---
Author Name Interface, [id number] lity Address [address] [place] [address] [address] [place] [address] [facility] Oncology Address [facility] [address] [place] [address] Care Team Providers Care Machine Bookkeeper Name Role Phone Roland Rojas Unavailable Unavailable Allergies and Adverse Reactions Care Plan Reason for Visit Encounters Functional Status Medications Problems Procedures Social History
--- OUTSIDE RECORDS SUMMARY | 2024-10-18 00:48 | XMS_ITS ---
Author Name Interface, [id number] lity Address [address] [place] [address] [address] [address] [facility] Oncology Address [facility]0 [facility] [address] [place] [address] Care Team Providers Care Adult Specialist Name Role Phone Roland Rojas L Unavailable [...] WBC K/uL 3.0 8.9 5.1 FINAL [place] [address] [phone] Phone: () - 01/15 CBC w/ auto diff HGB g/dL 12.5 16.6 14.9 FINAL [place] [address] [phone] 0 Phone: () - 01/15 CBC w/ auto diff PLT K/uL 113.0 364.0 183 FINAL [place] [address] [phone] 0 Phone: () - 01/15 CBC w/ auto diff Radha # (ANC) K/uL 1.6 6.6 2.6 FINAL [place] [facility] [place] , [address] [place] [phone] 0 Phone: () - 01/15 CBC w/ auto diff Radha % % 43.0 74.0 51.5 FINAL Girum Crystal betancur [address] [phone] 0 Phone: () - 01/15 CBC w/ auto diff IG % % 0.0 0.5 0.2 FINAL Girum Crystal betancur [address] [phone] 0 Phone: () - 01/15 CBC w/ auto diff IG # K/uL 0.0 0.03 0.01 FINAL Girjuan josé Varma gypsy [address] [phone] 0 Phone: () - 01/15 CBC w/ auto diff LY % % 14.0 41.0 37.5 FINAL Girum Crystal Varma[address] [id number] 0 Phone: () - 01/15 CBC w/ auto diff MO % % 6.0 15.0 9.2 FINAL [place] Crystal Varma[address] [phone] 0 Phone: () - 01/15 CBC w/ auto diff EO % % 0.0 7.0 1.0 FINAL Girjuan josé Varma[address] [phone] 0 Phone: () - 01/15 CBC w/ auto diff BA % % 0.0 2.0 0.6 FINAL Girum Crystal betancur [address] [phone] 0 Phone: () - 01/15 CBC w/ auto diff LY # K/uL 0.4 3.6 1.9 FINAL Girum Crystal betancur [address] [id number] 0 Phone: () - 01/15 CBC w/ auto diff MO # K/uL 0.2 1.3 0.5 FINAL Girum Crystal [place] a [address] [phone] 0 Phone: () - 01/15 CBC w/ auto diff EO # K/uL 0.0 0.6 0.1 FINAL Girum Crystal betancur [address] [phone] 0 Phone: () - 01/15 CBC w/ auto diff BA # K/uL 0.0 0.2 0.0 FINAL Roland betancur [address] [id number] 0 Phone: () - 01/15 CBC w/ auto diff NRBC % #/100W BC 0.0 0.2 0.0 FINAL Roland Varma gypsy [address] [id number] 0 Phone: () - 01/15 CBC w/ auto diff RBC M/uL 4.2 5.6 4.53 FINAL Girjuan josé Varma gypsy [address] [phone] 0 Phone: () - 01/15 CBC w/ auto diff HCT % 39.0 49.0 41.9 FINAL Girjuan josé Varma gypsy [address] [phone] 0 Phone: () - 01/15 CBC w/ auto diff MCV fL 80.0 104.0 92.5 FINAL Girjuan josé Varma gypsy [address] [phone] 0 Phone: () - 01/15 CBC w/ auto diff MCH pg 26.0 35.0 32.9 FINAL Girum Crystal betancur [address] [id number] 0 Phone: () - 01/15 CBC w/ auto diff MCHC g/dL 30.0 35.0 35.6 High FINAL Girum Crystal betancur [address] [phone] 0 Phone: () - 01/15 CBC w/ auto diff MPV fL 9.5 13.4 9.5 FINAL Girum Crystal betancur [address] [phone] 0 Phone: () - 01/15 CBC w/ auto diff RDW % 11.3 15.6 12.30 [facility] [address] [phone] 0 Phone: () - 01/15 Lisandro tin panel Lisandro tin NG/ML 27.0 300.0 229.90 [facility]AL [facility] [place], [address] [phone] 0 Phone: () - Medications Date Name [...] He recently moved from [place] to [place] because of her new job. More than [...]
--- OUTSIDE RECORDS SUMMARY | 2024-10-18 00:48 | XMS_ITS ---
Author Name Interface, [id number] lity Address [address] [place] [address] [address] [address] [facility] Oncology Address [facility]0 [facility] [address] [address] Care Team Providers Care Nozzle Operator Name Role Phone Roland Rojas L Unavailable Unavailable Allergies and Adverse Reactions Medication/Group Name Reaction Severity Date No known allergies Plan Date Type Value 01/15/2023 APPOINTMENT LAB 15 MIN 01/15/2023 APPOINTMENT OV 20 MIN 12/30/2021 APPOINTMENT PHLEBOTOMY 30 VA N 01/15/2023 LABORDER CBC w/ auto diff 01/15/2023 LABORDER Ferritin panel 01/14/2024 LABORDER CBC w/ auto diff 01/14/2024 LABORDER Ferritin panel Reason for Visit OV 20 MIN Diagnostic Results Date Type Test Units Lower Limit Upper Limit Result Flag Comments Status Ordered By Specimen Source Lab Address 01/15 CBC w/ auto diff WBC K/uL 3.0 8.9 5.1 FINAL [place] [address] [phone] Phone: () - 01/15 CBC w/ auto diff HGB g/dL 12.5 16.6 14.9 FINAL [place] [address] [phone] 0 Phone: () - 01/15 CBC w/ auto diff PLT K/uL 113.0 364.0 183 FINAL [place] [address] [phone] 0 Phone: () - 01/15 CBC w/ auto diff Rahda # (ANC) K/uL 1.6 6.6 2.6 FINAL [place] [address] [phone] 0 Phone: () - 01/15 CBC w/ auto diff Radha % % 43.0 74.0 51.5 FINAL Girum Crystal betancur [address] [phone] 0 Phone: () - 01/15 CBC w/ auto diff IG % % 0.0 0.5 0.2 FINAL Girum Crystal betancur [address] [phone] 0 Phone: () - 01/15 CBC w/ auto diff IG # K/uL 0.0 0.03 0.01 FINAL Girum Crystal betancur [address] [id number] 0 Phone: () - 01/15 CBC w/ auto diff LY % % 14.0 41.0 37.5 FINAL Girum Crystal betancur [address] [phone] 0 Phone: () - 01/15 CBC w/ auto diff MO % % 6.0 15.0 9.2 FINAL Girum Crystal betancur [address] [id number] 0 Phone: () - 01/15 CBC w/ auto diff EO % % 0.0 7.0 1.0 FINAL Girum Crystal betancur [address] [phone] 0 Phone: () - 01/15 CBC w/ auto diff BA % % 0.0 2.0 0.6 FINAL Girum Crystal betancur [address] [phone] 0 Phone: () - 01/15 CBC w/ auto diff LY # K/uL 0.4 3.6 1.9 FINAL Girum Crystal betancur [address] [phone] 0 Phone: () - 01/15 CBC w/ auto diff MO # K/uL 0.2 1.3 0.5 FINAL Girum Crystal [place] a [address] [id number] 0 Phone: () - 01/15 CBC w/ auto diff EO # K/uL 0.0 0.6 0.1 FINAL Girum Crystal betancur [address] [id number] 0 Phone: () - 01/15 CBC w/ auto diff BA # K/uL 0.0 0.2 0.0 FINAL Girum Crystal betancur [address] [phone] 0 Phone: () - 01/15 CBC w/ auto diff NRBC % #/100W BC 0.0 0.2 0.0 FINAL Girjuan josé betancur [address] [phone] 0 Phone: () - 01/15 CBC w/ auto diff RBC M/uL 4.2 5.6 4.53 FINAL Girjuan josé betancur [address] [phone] 0 Phone: () - 01/15 CBC w/ auto diff HCT % 39.0 49.0 41.9 FINAL Girum Crystal Varma gypsy [address] [phone] 0 Phone: () - 01/15 CBC w/ auto diff MCV fL 80.0 104.0 92.5 FINAL Girjuan josé betancur [address] [phone] 0 Phone: () - 01/15 CBC w/ auto diff MCH pg 26.0 35.0 32.9 FINAL Girum Crystal betancur [address] [phone] 0 Phone: () - 01/15 CBC w/ auto diff MCHC g/dL 30.0 35.0 35.6 High FINAL Girum Crystal betancur [address] [phone] 0 Phone: () - 01/15 CBC w/ auto diff MPV fL 9.5 13.4 9.5 FINAL Girum Crystal Varma gypsy [address] [phone] 0 Phone: () - 01/15 CBC w/ auto diff RDW % 11.3 15.6 12.30 [facility] [place] , [address] [facility] [address] [facility] [phone] 0 Phone: () - 01/15 Lisandro tin panel Lisandro tin NG/ML 27.0 300.0 229.90 FINAL [facility] [place], [address] [facility] [address] [facility] [phone] 0 Phone: () - Medications Date Name [...] of iron overload. He recently moved from [facility] to [place] because of her new job. More than 4 years ago he was diagnosed with high ferritin. Due to the fact that he was in [place] during the month because of disease, he was declined phlebotomy in [facility]. He established his care here and had [...] Covid-19 vaccine (Pfizer) (12/10/2020), Elsewhere; Covid-19 vaccine (Innotas) (12/10/2020), Elsewhere;Flu vaccine - Adult (08/2021), Elsewhere [...]
--- OUTSIDE RECORDS SUMMARY | 2024-10-18 00:48 | XMS_ITS | CCD ---
Author Name Interface, [id number] lity Address [address] [place] [address] [address] [place] [address] [facility] Oncology Address [facility]0 [facility] [address] [place] [address] Care Team Providers Care Project Construction Assistant Manager Name Role Phone Roland Rojas Unavailable Unavailable Allergies and Adverse Reactions Care Plan Reason for Visit Encounters Functional Status Medications Problems Procedures Social History
== END 2024-10-17 10:23 | disposition home or self-care (01) ==
LOC: OP CLINIC 10:29
PROVIDERS: Visit Provider Internal Medicine Gastroenterology
DX: Z12.11 Encounter for screening for malignant neoplasm of colon (principal); Z86.0101 Personal history of adenomatous and serrated colon polyps; D12.8 Benign neoplasm of rectum
CPT/HCPCS: 45338; 88305